=== PATIENT | male | born 1990 | race African-American/Black ===

== ENCOUNTER → 2019-09-20 | Emergency (ER) | LOC: ERS 09:37 | DX: Z53.21 Procedure and treatment not carried out due to patient leaving prior to being seen by health care provider (principal) ==

== ENCOUNTER 2019-09-21 00:37 | Emergency (ER) | payer SELFPAY ==
[2019-09-21] MEDS ORDERED: Ibuprofen 800 MG TAB ONE (02:43)
== END 2019-09-21 03:15 | disposition home or self-care (01) ==
LOC: ERS 00:37
DX: M76.821 Posterior tibial tendinitis, right leg (principal); J45.909 Unspecified asthma, uncomplicated; F32.9 Major depressive disorder, single episode, unspecified; F20.9 Schizophrenia, unspecified
CPT/HCPCS: 99283